=== PATIENT | female | born 1965 | race Caucasian/White ===

== ENCOUNTER 2022-09-07 16:34 | Outpatient (CLI) | payer OTHER, SELFPAY ==
--- NOTE | 2022-09-07 16:43 | CT_ITS ---
WS: [id number] CT TEMPORAL BONES TECHNIQUE: Noncontrast CT of the temporal bones with coronal and sagittal reformatted images. CLINICAL INFORMATION: MIXED CONDUCTIVE AND SENSORINEURAL HEARING LOSS, BILATERAL COMPARISON: None. DLP: 1003.[address] scans at [facility] use at least one of these dose optimization techniques: automated e xposure control; mA and/or kV adjustment per patient size (includes targeted exams where dose is matc hed to clinical indication); or iterative reconstruction. FINDINGS: Paranasal sinuses are well aerated. Mild mucosal thickening ethmoid air cells. Complete opa cification RIGHT mastoid air cells. Near complete opacification LEFT mastoid air cells. Normal zipper lining folder ior nasopharynx. Normal preferential fat. RIGHT: Normal external auditory canal. Ossicles are normal in appearance. Mild mucosal thickening RIGHT epit ympanum. Middle ear is otherwise well aerated. Normal tegmen tympani. Semicircular canals and cochlea are normal in appearance. Prussak's space is normal. Normal inner ear structures. Normal vestibular aqueduct. Facial nerve recess is normal. LEFT: Normal external auditory canal. Ossicles are normal in appearance. Slight mucosal thickening RIGHT ep itympanum. Middle ear is otherwise well aerated. Normal tegmen tympani. Semicircular canals and cochl ea are normal in appearance. Prussak's space is normal. Normal inner ear structures. Normal vestibula r aqueduct. Facial nerve recess is normal. CT/CT temporal bone wo con* [id number] IMPRESSION: 1. Complete opacification RIGHT mastoid air cells. Near complete opacification LEFT mastoid air cells. Opacification of the aditus ad antrum and mastoid antr um bilaterally 2. Mild mucosal thickening in the RIGHT epitympanum. Slight mucosal thickening LEFT epitympanum. Middle ear is otherwise well aerated. 3. Normal ossicles bilaterally. 4. Normal inner ear structures bilaterally. 5. Partially visualized paranasal sinuses are well aerated.
== END 2022-09-07 16:35 | disposition home or self-care (01) ==
LOC: RAD 16:37
PROVIDERS: PCP Family Medicine; Visit Provider Specialist
DX: H90.6 Mixed conductive and sensorineural hearing loss, bilateral (principal)
CPT/HCPCS: 70480

== ENCOUNTER → 2023-09-25 13:52 | Outpatient (BNVA) | payer BC, SELFPAY | PROVIDERS: PCP Family Medicine; Visit Provider Family Medicine | DX: E66.9 Obesity, unspecified (principal) | CPT/HCPCS: 80053; 85025 ==

== ENCOUNTER → 2024-05-09 12:26 | Outpatient (BNVA) | payer BC, SELFPAY | PROVIDERS: PCP Family Medicine; Visit Provider Family Medicine | DX: Z13.21 Encounter for screening for nutritional disorder (principal); K91.2 Postsurgical malabsorption, not elsewhere classified; Z98.84 Bariatric surgery status | CPT/HCPCS: 80053; 80061; 82306; 82607; 82746; 83735; 84425; 85007; 85027 ==

== ENCOUNTER → 2024-11-05 07:21 | Outpatient (BNVA) | payer OTHER, SELFPAY | PROVIDERS: PCP Family Medicine; Visit Provider Family Medicine | DX: K91.2 Postsurgical malabsorption, not elsewhere classified (principal); Z13.21 Encounter for screening for nutritional disorder; Z98.84 Bariatric surgery status | CPT/HCPCS: 80053; 80061; 82607; 82652; 82746; 83036; 83735; 84425; 85007; 85027 ==